=== PATIENT | female | born 1950 | race Caucasian/White ===

== ENCOUNTER 2016-11-24 13:34 | Emergency (ER) | payer MEDICARE, OTHER ==
[2016-11-24 14:05] LABS: CHLORIDE,CL 109 mmol/L (98-107); SODIUM,NA 144 mmol/L (136-145)
[2016-11-24] MEDS ORDERED: Morphine 4 MG/ML Syringe IM ONE (14:57)
[2016-11-24] MEDS ORDERED: Ondansetron 4 MG/2 ML SDV IVPUSH ONE ×2 (14:57→15:00)
[2016-11-24] MEDS ORDERED: Morphine 4 MG/ML Syringe IVPUSH ONE (14:59)
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
== END 2016-11-24 16:50 | disposition home or self-care (01) ==
LOC: LL.ED 13:34
DX: S01.01XA Laceration without foreign body of scalp, initial encounter (principal); S61.412A Laceration without foreign body of left hand, initial encounter; S40.012A Contusion of left shoulder, initial encounter; M54.42 Lumbago with sciatica, left side; E78.00 Pure hypercholesterolemia, unspecified; F32.9 Major depressive disorder, single episode, unspecified; E03.9 Hypothyroidism, unspecified; E66.9 Obesity, unspecified; I25.10 Atherosclerotic heart disease of native coronary artery without angina pectoris; Z86.73 Personal history of transient ischemic attack (TIA), and cerebral infarction without residual deficits; Z88.2 Allergy status to sulfonamides; Z79.82 Long term (current) use of aspirin; Z79.899 Other long term (current) drug therapy; W05.0XXA Fall from non-moving wheelchair, initial encounter
CPT/HCPCS: 12001; 36415; 70450; 72125; 72131; 80053; 85025; 85610; 96374; 96375; 99285; G0390; J2270; J2405; 99283